=== PATIENT | female | born 1960 | race Caucasian/White ===

== ENCOUNTER 2024-07-14 07:29 | Day surgery (SDC) | payer OTHER ==
[2024-07-12 15:06] VITALS: BMI 31.2
[2024-07-14] MEDS ORDERED: SEVOFLURANE 250 ML BTL ONE (07:46)
[2024-07-14] MEDS ORDERED: PROPOFOL 80 ML ONE (07:46)
[2024-07-14] MEDS ORDERED: MIDAZOLAM HCL 2 MG/2 ML SINGLE DOSE VIAL ONE (07:47)
[2024-07-14] MEDS ORDERED: LIDOCAINE HCL 2% 100 MG/5 ML DISP.SYRIN ONE (07:47)
[2024-07-14] MEDS ORDERED: BUPIVACAINE HCL/EPINEPHRINE/PF 30 ML VIAL IJ ONE (07:48)
[2024-07-14] MEDS ORDERED: oxyCODONE HCL 5 MG TABLET PO PRN ×2 (08:03)
[2024-07-14] MEDS ORDERED: LACTATED RINGERS SOLUTION 1,000 ML IV SCH (08:15)
[2024-07-14] MEDS ORDERED: ceFAZolin SODIUM 1 GM VIAL ONE (08:54)
[2024-07-14] MEDS ORDERED: ONDANSETRON 4 MG/2 ML VIAL ONE ×2 (08:54→12:02)
[2024-07-14] MEDS ORDERED: DEXAMETHASONE SOD PHOSPHATE 4 MG/1 ML VIAL ONE (08:54)
[2024-07-14] MEDS ORDERED: SUCCINYLCHOLINE CHLORIDE 200 MG/10 ML SYRINGE ONE (09:01)
[2024-07-14] MEDS ORDERED: SODIUM CHLORIDE 0.9% P/F 10 ML VIAL IJ ONE (09:24)
[2024-07-14] MEDS: ACETAMINOPHEN 1000 MG/100 ML BAG IVPB ONE (11:30)
[2024-07-14] MEDS ORDERED: ACETAMINOPHEN INJECTION 100 ML ONE (11:39)
[2024-07-14] MEDS ORDERED: FENTANYL CITRATE/PF 50 MCG/ML VIAL ONE (12:03)
[2024-07-14] MEDS: ONDANSETRON 4 MG/2 ML VIAL IVPUSH PRN (12:10)
[2024-07-14] MEDS: PROMETHAZINE HCL 25 MG/1 ML VIAL IVPB PRN (12:20)
[2024-07-14] MEDS ORDERED: PROMETHAZINE HCL 25 MG/1 ML VIAL ONE (12:22)
[2024-07-14 13:25] VITALS: TEMP 97.5
[2024-07-14 15:45] VITALS: BP 122/59; PULSE 72; RESP 20
== END 2024-07-14 15:10 | disposition home or self-care (01) ==
LOC: FASU 07:29
PROVIDERS: ATTEND Plastic Surgery
PROC: 0HRT37Z Replacement of Right Breast with Autologous Tissue Substitute, Percutaneous Approach (ICD-10-PCS; principal; 2024-07-14 09:28)
PROC: 0HX5XZZ Transfer Chest Skin, External Approach (ICD-10-PCS; 2024-07-14 09:28)
DX: N65.0 Deformity of reconstructed breast (principal); N65.1 Disproportion of reconstructed breast; R22.33 Localized swelling, mass and lump, upper limb, bilateral
CPT/HCPCS: 88305-TC; 94760; J0131